=== PATIENT | male | born 1985 | race Caucasian/White ===

== ENCOUNTER 2018-03-21 08:27 | Emergency (ER) | payer MEDICAID ==
[~2018-03-21] VITALS: Ht 408.9 cm; Wt 102.5 kg
[2018-03-21 08:30] VITALS: Ht 408.9 cm; Wt 102.5 kg
[2018-03-21 10:43] LABS: AMPHETAMINE QUAL UR NONE DETECTED (See below)
[2018-03-21 10:46] LABS: ALBUMIN 4.3 g/dL (3.4-5.0); ALKALINE PHOSPHATASE 96 U/L (46-116); ALT/SGPT 94 U/L (16-63); AMYLASE 86 U/L (25-115); AST/SGOT 30 U/L (15-37); BILIRUBIN TOTAL 0.5 mg/dL (0.20-1.00); CALCIUM 9.1 mg/dL (8.5-10.1); CARBON DIOXIDE 27.2 mmol/L (21-32); CHLORIDE SERUM 102 mmol/L (98-107); GFR1 > 60 mL/min; GLUCOSE SERUM 110 mg/dL (74-106); LIPASE 106 IU/L (73-393); SODIUM SERUM 135 mmol/L (136-145)
[2018-03-21 10:47] LABS: TOTAL PROTEIN, SERUM 8.8 g/dL (6.4-8.2)
[2018-03-21 11:09] LABS: BASOPHIL % 0.4 % (0-2); PLATELET COUNT 296 x10^3mcL (130-400); RED CELL DISTRIBUTION WIDTH 12.1 % (11.5-14.5)
[2018-03-21 13:06] VITALS: BP 129/69
== END 2018-03-21 13:06 | disposition home or self-care (01) ==
LOC: ED 08:27
PROVIDERS: Emergency Medicine
DX: M94.0 Chondrocostal junction syndrome [Tietze] (principal); F12.90 Cannabis use, unspecified, uncomplicated
CPT/HCPCS: 36415; G0480

== ENCOUNTER 2020-01-03 09:01 | Emergency (ER) | payer MEDICAID ==
[~2020-01-03] VITALS: Ht 180.3 cm; Wt 95.3 kg
[2020-01-03 09:02] VITALS: BP 141/98; Ht 180.3 cm; Wt 95.3 kg
== END 2020-01-03 10:06 | disposition home or self-care (01) ==
LOC: ED 09:01
DX: B34.9 Viral infection, unspecified (principal); Z20.828 Contact with and (suspected) exposure to other viral communicable diseases